=== PATIENT | female | born 1965 | race Caucasian/White ===

== ENCOUNTER 2016-09-11 11:34 | Day surgery (SDC) | payer BC ==
[~2016-09-11 11:34] MED LIST: SODIUM CHLORIDE 0.9% 250 ML in EMPTY BAG 1 BAG IV PRN; SODIUM CHLORIDE 0.9% 500 ML in EMPTY BAG 1 BAG IV PRN
[2016-09-11 11:50] VITALS: TEMP 98.4
[2016-09-11 11:52] VITALS: RESP 16
[2016-09-11] MEDS ORDERED: LACTATED RINGERS 1,000 ML IV NR (12:30)
--- NOTE | 2016-09-11 12:34 | P.PCN ---
Date of Procedure: 09/11/16 Preoperative Diagnosis: headaches Postoperative Diagnosis: same Procedure(s) Performed: Diagnostic lumbar puncture Anesthesia: local Surgeon: Twin Goff Pathology: none sent Condition: stable Disposition: same day Description of Procedure: The patient was seen and identified in the preoperative holding area. Risks, benefits, and alternatives to the procedure were explained to the patient, with risks including but not limited to bleeding, infection, nerve damage, weakness, headaches, allergic reactions to medications, and failure of the procedure itself, and an informed consent was signed after all questions were answered. A time-out was completed verifying correct patient, procedure, site, positioning , The patient was placed in the seated position in a semi- position with help from the nursing staff. The low back was cleansed and draped in the usual sterile fashion. 1% lidocaine was used anesthetize the surrounding skin area. A 22-gauge 3.5-inch spinal needle was placed in the L3-L4 interspace. A dural pop was felt and no paresthesias were noted. The stylet was removed and clear free- flowing cerebrospinal fluid was obtained. Four tubes were filled with 4 mL of CSF and these were sent for the usual tests as ordered by the patient's neurologist. DISPOSITION: The patient tolerated the procedure well and there were no complications. The patient was placed in a flat position. There was no evidence of upper extremity motor or sensory deficit after the procedure. Patient was discharged from the recovery room after meeting discharge criteria. Home discharge instructions were given to the patient by the staff, and the patient was instructed to go to the ER if she experienced severe headaches or any signs of symptoms of spinal infection or hematoma, regarding which she was educated. The patient verbalized understanding of these instructions.
[2016-09-11 12:48] LABS: ALT 26 U/L (9-52); AST 19 U/L (14-36)
[2016-09-11 12:50] LABS: Glucose,CSF 56 mg/dL (40-70)
[2016-09-11 12:52] LABS: Rheumatoid Factor, Qnt <9 IU/mL (<12)
[2016-09-11 12:57] VITALS: BP 140/99; PULSE 69
[2016-09-11 13:18] LABS: Appearance,CSF Clear
[2016-09-11 19:32] LABS: Treponemal Ab Non-Reactive (Non-Reactive)
[2016-09-11 21:31] LABS: ANA w/Reflex to Titer NEGATIVE (NEGATIVE)
[2016-09-12 05:32] LABS: Lyme Antibodies Total(IgG/IgM) 0.14 (<0.90)
[2016-09-14 20:16] LABS: Lyme Specimen Source CSF
== END 2016-09-11 14:57 | disposition home or self-care (01) ==
LOC: PROCWHC3 11:34
PROVIDERS: ATTEND Psychiatry & Neurology Neurology
DX: R51 Headache (principal); Z88.2 Allergy status to sulfonamides
CPT/HCPCS: 36415; 62270; 82040; 82042; 82164; 82784; 82945; 83873; 83916; 84157; 84439; 84443; 84450; 84460; 85613; 85730; 86038; 86225; 86235; 86431; 86592; 86618; 86780; 87476; 88108; 89050

== ENCOUNTER 2020-11-18 14:17 | Emergency (ER) | payer BC, OTHER ==
[2020-11-18 14:38] VITALS: RESP 18
[2020-11-18] MEDS ORDERED: SODIUM CHLORIDE 0.9% 1,000 ML IV ONE (16:40)
[2020-11-18] MEDS ORDERED: LIDOCAINE 1% INJ 10MG/ML (20 ML MDV) SQ ONE (16:41)
[2020-11-18] MEDS ORDERED: AMPICILLIN-SULBACTAM 3 GM in SODIUM CHLORIDE 0.9% 100 ML IVPB STA (16:41)
--- NOTE | 2020-11-18 17:04 | XR ---
RESULT: HISTORY: abscess, cellulitis TECHNIQUE: 2 views of the left tibia and fibula were obtained. COMPARISON: None. FINDINGS: There is no acute fracture or dislocation. The visualized joint spaces are preserved. No soft tissue gas or radiographic evidence for osteomyelitis. IMPRESSION: No acute osseous abnormality.
[2020-11-18 17:35] LABS: Basophils % (A) 1 %; Eosinophils % (A) 0 %; HCT 37.3 % (34.0-46.0); HGB 13.3 gm/dL (11.4-16.0); Lymphocytes # (A) 0.9 k/uL (1.0-4.8); Lymphocytes % (A) 17 %; MCH 33.7 pg (25.0-35.0); MCHC 35.6 g/dL (31.0-37.0); MCV 94.5 fL (80.0-100.0); Mean Platelet Volume 7.3; Monocytes # (A) 0.4 k/uL (0-1.0); Monocytes % (A) 8 %; Neutrophils # (A) 3.9 k/uL (1.3-7.7); Neutrophils % (A) 73 %; Platelet Count 163 k/uL (150-450); RBC 3.94 m/uL (3.80-5.40); RDW 12.1 % (11.5-15.5); WBC 5.4 k/uL (3.8-10.6)
[2020-11-18 17:37] LABS: ALT 8 U/L (4-34); AST 24 U/L (14-36); African American GFR (CKD) >90 (>60 ml/min/1.73 sqM); Albumin 3.2 g/dL (3.5-5.0); Alkaline Phosphatase 58 U/L (38-126); Anion Gap 3 mmol/L; Blood Urea Nitrogen 8 mg/dL (7-17); Calcium 8.3 mg/dL (8.4-10.2); Carbon Dioxide 32 mmol/L (22-30); Chloride 95 mmol/L (98-107); Glucose 95 mg/dL (74-99); Non-African American GFR(CKD) >90 (>60 ml/min/1.73 sqM); Potassium 3.9 mmol/L (3.5-5.1); Sodium 130 mmol/L (137-145); Total Bilirubin 0.6 mg/dL (0.2-1.3); Total Protein 6.2 g/dL (6.3-8.2)
[2020-11-18] MEDS ORDERED: ACETAMINOPHEN TAB 500 MG TAB PO STA (18:03)
--- NOTE | 2020-11-18 18:53 | ED ---
Skin/Abscess/FB HPI - General Chief complaint: Skin/Abscess/Foreign Body Stated complaint: SPIDER BITE ON LEFT LEG Source: patient Mode of arrival: ambulatory Limitations: no limitations - History of Present Illness Initial comments: 55 year old female with past medical history of CVA who presents emergency Department with reported left lower extremity wound. Patient states that she noted a small pimple to the left calf a few days ago which she thought was due to a bug bite. States it's enlarged in size and is now draining. She has associated surrounding redness to the area. Patient denies history of similar. No history of MRSA. Denies any fevers or chills. No difficulties with ambulation. Denies any knee or ankle pain. Patient has not taken any medications for pain control. No history of diabetes. Patient not on any blood thinners. No other alleviating, precipitating or modifying factors. - Related Data Previous Rx's Medication Instructions Recorded Cephalexin [Keflex] 500 mg PO Q6HR #40 cap 11/18/20 Sulfamethox-Tmp 800-160Mg [Bactrim 2 tab PO Q12HR #40 tab 11/18/20 DS 800-160 mg] Allergies Allergy/AdvReac Type Severity Reaction Status Date / Time povidone-iodine Allergy Rash/Hives Verified 11/18/20 14:38 [From Betadine] soap [From Betadine] Allergy Rash/Hives Verified 11/18/20 14:38 Review of Systems ROS Statement: Those systems with pertinent positive or pertinent negative responses have been documented in the HPI. ROS Other: All systems not noted in ROS Statement are negative. Past Medical History Past Medical History: CVA/TIA, Pneumonia Additional Past Medical History / Comment(s): headaches History of Any Multi-Drug Resistant Organisms: None Reported Past Surgical History: Tonsillectomy, Tubal Ligation Past Psychological History: Anxiety, Depression Smoking Status: Current every day smoker Past Alcohol Use History: None Reported Past Drug Use History: None Reported General Exam Limitations: no limitations General appearance: alert, in no apparent distress Head exam: Present: atraumatic, normocephalic, normal inspection Eye exam: Present: normal appearance, PERRL, EOMI. Absent: scleral icterus, conjunctival injection, periorbital swelling ENT exam: Present: normal exam, mucous membranes moist Neck exam: Present: normal inspection. Absent: tenderness, meningismus, lymphadenopathy Respiratory exam: Present: normal lung sounds bilaterally. Absent: respiratory distress, wheezes, rales, rhonchi, stridor Cardiovascular Exam: Present: regular rate, normal rhythm, normal heart sounds. Absent: systolic murmur, diastolic murmur, rubs, gallop, clicks GI/Abdominal exam: Present: soft, normal bowel sounds. Absent: distended, tenderness, guarding, rebound, rigid Extremities exam: Present: tenderness, normal capillary refill, other (abscess left leg - 5 x 4 cm with surrounding cellulitis. No active drainage. Central scabbing. 2+ DP and PT pulses. Swelling is located anterior azul. Not fully circumferential. No crepitance. No signs of compartment syndrome). Absent: pedal edema, joint swelling, calf tenderness Back exam: Present: normal inspection Neurological exam: Present: alert, oriented X3, CN II-XII intact Psychiatric exam: Present: normal affect, normal mood Skin exam: Present: warm, dry, intact, normal color. Absent: rash Course Vital Signs 11/18/20 11/18/20 14:31 19:00 Temperature 100.1 F H 99 F Pulse Rate 110 H 96 Respiratory 18 18 Rate Blood Pressure 135/79 132/86 O2 Sat by Pulse 97 98 Oximetry Procedures - Incision & Drainage Consent Obtained: verbal consent Indication: abscess Site: lower extremity Size (cm): 5 Anesthetic Used: lidocaine 1% Amount (mLs): 5 I&D Cleaning Method: Chloroprep Scalpel Used: #11 I&D Drainage Obtained: Pus Culture Obtained?: Yes Patient Tolerated Procedure: well, no complications Medical Decision Making - Medical Decision Making Upon arrival patient is placed into room 32. A thorough history and physical exam is performed. IV is established and labs were conducted. Patient was given a dose of Unasyn in the emergency department as well as a liter bolus of normal saline and a gram of Tylenol. The patient's wound is cultured after incision and drainage is performed. Patient will be discharged home on Keflex and Bactrim. Instructed to take the medications as directed. Return to the emergency department if her symptoms worsen. Patient agreed to this and was discharged home in stable condition - Lab Data Result diagrams: 11/18/20 17:15 11/18/20 17:18 Lab Results 03/28/21 03/28/21 03/28/21 Range/Units 17:15 17:18 17:18 WBC 5.4 (3.8-10.6) k/uL RBC 3.94 (3.80-5.40) m/uL Hgb 13.3 (11.4-16.0) gm/dL Hct 37.3 (34.0-46.0) % MCV 94.5 (80.0-100.0) fL MCH 33.7 (25.0-35.0) pg MCHC 35.6 (31.0-37.0) g/dL RDW 12.1 (11.5-15.5) % Plt Count 163 (150-450) k/uL MPV 7.3 Neutrophils % 73 % Lymphocytes % 17 % Monocytes % 8 % Eosinophils % 0 % Basophils % 1 % Neutrophils # 3.9 (1.3-7.7) k/uL Lymphocytes # 0.9 L (1.0-4.8) k/uL Monocytes # 0.4 (0-1.0) k/uL Eosinophils # 0.0 (0-0.7) k/uL Basophils # 0.0 (0-0.2) k/uL Sodium 130 L (137-145) mmol/L Potassium 3.9 (3.5-5.1) mmol/L Chloride 95 L (98-107) mmol/L Carbon Dioxide 32 H (22-30) mmol/L Anion Gap 3 mmol/L BUN 8 (7-17) mg/dL Creatinine 0.64 (0.52-1.04) mg/dL Est GFR (CKD-EPI)AfAm >90 (>60 ml/min/1.73 sqM) Est GFR (CKD-EPI)NonAf >90 (>60 ml/min/1.73 sqM) Glucose 95 (74-99) mg/dL Plasma Lactic Acid Angel 0.8 (0.7-2.0) mmol/L Calcium 8.3 L (8.4-10.2) mg/dL Total Bilirubin 0.6 (0.2-1.3) mg/dL AST 24 (14-36) U/L ALT 8 (4-34) U/L Alkaline Phosphatase 58 (38-126) U/L Total Protein 6.2 L (6.3-8.2) g/dL Albumin 3.2 L (3.5-5.0) g/dL Disposition Clinical Impression: Cellulitis, Abscess Disposition: HOME SELF-CARE Condition: Stable Instructions (If sedation given, give patient instructions): Abscess (ED), Abscess Incision and Drainage (DC) Additional Instructions: Please take the antibiotics as directed. Take Motrin/Tylenol for pain, Return to the emergency room for any new or worsening symptoms. Prescriptions: Sulfamethox-Tmp 800-160Mg [Bactrim DS 800-160 mg] 2 tab PO Q12HR #40 tab Cephalexin [Keflex] 500 mg PO Q6HR #40 cap Is patient prescribed a controlled substance at d/c from ED?: No Referrals: None,Stated [Primary Care Provider] - 1-2 days Time of Disposition: 18:53
[2020-11-18 19:01] VITALS: BP 132/86; PULSE 96; TEMP 99
== END 2020-11-18 19:02 | disposition home or self-care (01) ==
LOC: EC 14:17
DX: L03.116 Cellulitis of left lower limb (principal); L02.416 Cutaneous abscess of left lower limb; F41.9 Anxiety disorder, unspecified; F32.9 Major depressive disorder, single episode, unspecified; Z86.73 Personal history of transient ischemic attack (TIA), and cerebral infarction without residual deficits; F17.200 Nicotine dependence, unspecified, uncomplicated
CPT/HCPCS: 36415; 80053; 83605; 85025; 87070; 87205; 73590; 99283; 96365; J2001; J0295

== ENCOUNTER 2021-02-17 18:01 | Emergency (ER) | payer OTHER ==
[2021-02-17 18:05] VITALS: BP 144/92; PULSE 129; RESP 20; TEMP 98
[2021-02-17 18:49] LABS: Basophils # (A) 0.1 k/uL (0-0.2); Basophils % (A) 1 %; Eosinophils # (A) 0.3 k/uL (0-0.7); Eosinophils % (A) 3 %; HGB 14.5 gm/dL (11.4-16.0); Lymphocytes # (A) 1.5 k/uL (1.0-4.8); Lymphocytes % (A) 17 %; MCH 32.8 pg (25.0-35.0); MCHC 34.6 g/dL (31.0-37.0); Mean Platelet Volume 6.8; Monocytes # (A) 0.5 k/uL (0-1.0); Monocytes % (A) 5 %; Neutrophils # (A) 6.5 k/uL (1.3-7.7); Neutrophils % (A) 72 %; Platelet Count 290 k/uL (150-450); RBC 4.42 m/uL (3.80-5.40); RDW 12.5 % (11.5-15.5)
[2021-02-17 18:57] LABS: Albumin 4.2 g/dL (3.5-5.0); Appearance,Urine Clear (Clear); Bacteria,Urine Rare /hpf; Bilirubin,Urine Negative (Negative); Blood,Urine Negative (Negative); Calcium 10.2 mg/dL (8.4-10.2); Color,Urine Yellow; Glucose,Urine (UA) Negative (Negative); Hyaline Casts,Urine 1 /lpf (0-2); Ketones,Urine Negative (Negative); Leukocyte Esterase,Urine Large (Negative); Mucus,Urine Occasional /hpf; Nitrite,Urine Negative (Negative); PH, Urine 6.5 (5.0-8.0); Potassium 4.3 mmol/L (3.5-5.1); Protein,Urine Negative (Negative); RBC,Urine 3 /hpf (0-5); Specific Gravity,Urine 1.017 (1.001-1.035); Squamous Epithelial Cell,Urine 3 /hpf (0-4); Total Bilirubin 0.8 mg/dL (0.2-1.3); Total Protein 7.3 g/dL (6.3-8.2); WBC,Urine 3 /hpf (0-5)
[2021-02-17 19:12] LABS: Amphetamine Screen,Urine Detected (NotDetected); Barbiturate Screen,Urine Not Detected (NotDetected); Benzodiazepines Screen,Urine Not Detected (NotDetected); Cocaine Screen,Urine Not Detected (NotDetected); Methadone Screen, Urine Not Detected (NotDetected); Opiate Screen,Urine Not Detected (NotDetected); Oxycodone Screen, Urine Not Detected (NotDetected); Phencyclidine Screen,Urine Not Detected (NotDetected); Tricyclic Antidepressant,Urine Not Detected (NotDetected); Urn Cannabinoid Scrn Detected (NotDetected)
--- NOTE | 2021-02-17 19:34 | ED ---
General Adult HPI - General Chief complaint: Skin/Abscess/Foreign Body Stated complaint: skin issues Time Seen by Provider: 02/17/21 18:16 Source: patient, RN notes reviewed Mode of arrival: ambulatory Limitations: no limitations - History of Present Illness Initial comments: Patient is a 56-year-old female that presents to the emergency department comp laining of bugs crawling out of her skin. She notes that she woke up with her eye swollen shut picked at her eyes in bugs were crawling out. She notes turned her hair. Patient didn't appear to be on some type of foreign substance during the exam interview. She did report she did use marijuana earlier today. She denied any other substance use in the recent past. She was in no apparent distress or pain while sitting up. She denied any chest pain shortness breath headache nausea vomiting diarrhea constipation fever fatigue chills. - Related Data Previous Rx's Medication Instructions Recorded Cephalexin [Keflex] 500 mg PO Q6HR #40 cap 11/18/20 Sulfamethox-Tmp 800-160Mg [Bactrim 2 tab PO Q12HR #40 tab 11/18/20 DS 800-160 mg] Bacitracin Zinc/Polymyxin B 1 applic TOPICAL BID #15 gm 02/17/21 [Bacitracin-Polymyxin Ointment] Allergies Allergy/AdvReac Type Severity Reaction Status Date / Time povidone-iodine Allergy Rash/Hives Verified 11/18/20 14:38 [From Betadine] soap [From Betadine] Allergy Rash/Hives Verified 11/18/20 14:38 Review of Systems ROS Statement: Those systems with pertinent positive or pertinent negative responses have been documented in the HPI. ROS Other: All systems not noted in ROS Statement are negative. Past Medical History Past Medical History: CVA/TIA, Pneumonia Additional Past Medical History / Comment(s): headaches History of Any Multi-Drug Resistant Organisms: MRSA Date of last positivie culture/infection: 11/18/20 MDRO Source:: Left Leg Past Surgical History: Tonsillectomy, Tubal Ligation Past Psychological History: Anxiety, Depression Smoking Status: Current every day smoker Past Alcohol Use History: Occasional Past Drug Use History: None Reported General Exam Limitations: no limitations, altered mental status (Due to illegal drug.) General appearance: alert, in no apparent distress Head exam: Present: normocephalic, normal inspection Eye exam: Present: normal appearance, PERRL, EOMI. Absent: scleral icterus, conjunctival injection, periorbital swelling Neck exam: Present: normal inspection Respiratory exam: Present: normal lung sounds bilaterally. Absent: respiratory distress, wheezes, rales, rhonchi, stridor Cardiovascular Exam: Present: regular rate, normal rhythm, normal heart sounds. Absent: systolic murmur, diastolic murmur, rubs, gallop, clicks Extremities exam: Present: normal inspection, full ROM, normal capillary refill. Absent: tenderness, pedal edema, joint swelling, calf tenderness Neurological exam: Present: alert, oriented X3 Psychiatric exam: Present: normal affect, normal mood Skin exam: Present: warm, dry, intact, normal color, abrasion (Multiple the left side of the face, patient stated she scratched her face due to bolus and then.). Absent: rash Course Vital Signs 02/17/21 18:03 Temperature 98.0 F Pulse Rate 129 H Respiratory 20 Rate Blood Pressure 144/92 O2 Sat by Pulse 98 Oximetry Medical Decision Making - Medical Decision Making 56-year-old female complaining of bugs crawling out of her face and head. Patient declined any drug abuse or use except for marijuana. Labs, urinalysis, drug screen ordered. Labs unremarkable. Drug screen showed positive results for meth amphetamines and marijuana. Case discussed with Dr. Williamson, patient can discharge home to family. - Lab Data Result diagrams: 02/17/21 18:35 02/17/21 18:35 Lab Results 02/17/21 02/17/21 02/17/21 Range/Units 18:35 18:35 18:35 WBC 9.0 (3.8-10.6) k/uL RBC 4.42 (3.80-5.40) m/uL Hgb 14.5 (11.4-16.0) gm/dL Hct 42.0 (34.0-46.0) % MCV 95.0 (80.0-100.0) fL MCH 32.8 (25.0-35.0) pg MCHC 34.6 (31.0-37.0) g/dL RDW 12.5 (11.5-15.5) % Plt Count 290 (150-450) k/uL MPV 6.8 Neutrophils % 72 % Lymphocytes % 17 % Monocytes % 5 % Eosinophils % 3 % Basophils % 1 % Neutrophils # 6.5 (1.3-7.7) k/uL Lymphocytes # 1.5 (1.0-4.8) k/uL Monocytes # 0.5 (0-1.0) k/uL Eosinophils # 0.3 (0-0.7) k/uL Basophils # 0.1 (0-0.2) k/uL Sodium 138 (137-145) mmol/L Potassium 4.3 (3.5-5.1) mmol/L Chloride 101 (98-107) mmol/L Carbon Dioxide 28 (22-30) mmol/L Anion Gap 9 mmol/L BUN 9 (7-17) mg/dL Creatinine 0.96 (0.52-1.04) mg/dL Est GFR (CKD-EPI)AfAm 76 (>60 ml/min/1.73 sqM) Est GFR (CKD-EPI)NonAf 66 (>60 ml/min/1.73 sqM) Glucose 152 H (74-99) mg/dL Calcium 10.2 (8.4-10.2) mg/dL Total Bilirubin 0.8 (0.2-1.3) mg/dL AST 19 (14-36) U/L ALT 8 (4-34) U/L Alkaline Phosphatase 90 (38-126) U/L Total Protein 7.3 (6.3-8.2) g/dL Albumin 4.2 (3.5-5.0) g/dL Urine Color Yellow Urine Appearance Clear (Clear) Urine pH 6.5 (5.0-8.0) Ur Specific [place] 1.017 (1.001-1.035) Urine Protein Negative (Negative) Urine Glucose (UA) Negative (Negative) Urine Ketones Negative (Negative) Urine Blood Negative (Negative) Urine Nitrite Negative (Negative) Urine Bilirubin Negative (Negative) Urine Urobilinogen 2.0 (<2.0) mg/dL Ur Leukocyte Esterase Large H (Negative) Urine RBC 3 (0-5) /hpf Urine WBC 3 (0-5) /hpf Ur Squamous Epith Cells 3 (0-4) /hpf Urine Bacteria Rare H (None) /hpf Hyaline Casts 1 (0-2) /lpf Urine Mucus Occasional H (None) /hpf Urine Opiates Screen Not Detected (NotDetected) Ur Oxycodone Screen Not Detected (NotDetected) Urine Methadone Screen Not Detected (NotDetected) Ur Propoxyphene Screen Not Detected (NotDetected) Ur Barbiturates Screen Not Detected (NotDetected) U Tricyclic Antidepress Not Detected (NotDetected) Ur Phencyclidine Scrn Not Detected (NotDetected) Ur Amphetamines Screen Detected H (NotDetected) U Methamphetamines Scrn Detected H (NotDetected) U Benzodiazepines Scrn Not Detected (NotDetected) Urine Cocaine Screen Not Detected (NotDetected) U Marijuana (THC) Screen Detected H (NotDetected) Disposition Clinical Impression: Facial abrasion, Polysubstance abuse Disposition: HOME SELF-CARE Condition: Stable Instructions (If sedation given, give patient instructions): Polysubstance Abuse (ED) Additional Instructions: Please return to the Emergency Department if symptoms worsen or any other concerns. Use bacitracin ointment twice a day for facial abrasions. Follow-up primary can extremities. Avoid drug use. Is patient prescribed a controlled substance at d/c from ED?: No Referrals: None,Stated [Primary Care Provider] - 1-2 days Time of Disposition: 19:34
== END 2021-02-17 19:31 | disposition home or self-care (01) ==
LOC: EC 18:01
DX: S00.81XA Abrasion of other part of head, initial encounter (principal); F19.10 Other psychoactive substance abuse, uncomplicated; F31.9 Bipolar disorder, unspecified; F41.9 Anxiety disorder, unspecified; F17.200 Nicotine dependence, unspecified, uncomplicated; F12.90 Cannabis use, unspecified, uncomplicated; Z86.73 Personal history of transient ischemic attack (TIA), and cerebral infarction without residual deficits; X58.XXXA Exposure to other specified factors, initial encounter
CPT/HCPCS: 36415; 80053; 80306; 81001; 85025; 99283

== ENCOUNTER 2021-04-11 15:51 | Emergency (ER) | payer OTHER ==
[2021-04-11 16:06] VITALS: RESP 18; TEMP 97.8
--- NOTE | 2021-04-11 16:14 | ED ---
General Adult HPI - General Chief complaint: Overdose Stated complaint: Overdose Time Seen by Provider: 04/11/21 16:00 Source: patient, EMS, RN notes reviewed, old records reviewed Mode of arrival: EMS Limitations: no limitations - History of Present Illness Initial comments: This is a 56-year-old female who presents to the emergency department because she was found unresponsive. EMS stated when he initially arrived she had a pulse but was apneic they gave her 1 mg of Narcan she became alert and oriented 4. Patient states she was short hair one which she hasn't done in a long time and that last she remembers. Patient denies any drug use patient denies any alcohol use. Patient denies any other problems per patient states she has no medical problem. Patient denies any recent fever chills or cough per patient denies any chest pain difficult breathing shortest breath per patient denies any headache patient denies numbness weakness. Patient denies any abdominal pain. Patient denies any recent injury or trauma. Patient states she wants no workup and does not want to stay at all and is willing to sign an AMA I did convince her however to do a drug screen to make sure there was noted no methadone on board. - Related Data Previous Rx's Medication Instructions Recorded Cephalexin [Keflex] 500 mg PO Q6HR #40 cap 11/18/20 Sulfamethox-Tmp 800-160Mg [Bactrim 2 tab PO Q12HR #40 tab 11/18/20 DS 800-160 mg] Bacitracin Zinc/Polymyxin B 1 applic TOPICAL BID #15 gm 02/17/21 [Bacitracin-Polymyxin Ointment] Allergies Allergy/AdvReac Type Severity Reaction Status Date / Time povidone-iodine Allergy Rash/Hives Verified 04/11/21 16:06 [From Betadine] soap [From Betadine] Allergy Rash/Hives Verified 04/11/21 16:06 Review of Systems ROS Statement: Those systems with pertinent positive or pertinent negative responses have been documented in the HPI. ROS Other: All systems not noted in ROS Statement are negative. Past Medical History Past Medical History: CVA/TIA, Pneumonia Additional Past Medical History / Comment(s): headaches History of Any Multi-Drug Resistant Organisms: MRSA Date of last positivie culture/infection: 11/18/20 MDRO Source:: Left Leg Past Surgical History: Tonsillectomy, Tubal Ligation Past Psychological History: Anxiety, Depression Smoking Status: Current every day smoker Past Alcohol Use History: Occasional Past Drug Use History: Heroin, Marijuana General Exam - General Exam Comments Initial Comments: GENERAL: Patient is well-developed and well-nourished. Patient is nontoxic and well- hydrated and is in no acute distress. ENT: Neck is soft and supple. No significant lymphadenopathy is noted. Oropharynx is clear. Moist mucous membranes. Neck has full range of motion without eliciting any pain. EYES: The sclera were anicteric and conjunctiva were pink and moist. Extraocular movements were intact and pupils were equal round and reactive to light. Eyelids were unremarkable. PULMONARY: Unlabored respirations. Good breath sounds bilaterally. No audible rales rhonchi or wheezing was noted. CARDIOVASCULAR: There is a regular rate and rhythm without any murmurs gallops or rubs. ABDOMEN: Soft and nontender with normal bowel sounds. SKIN: Skin is clear with no lesions or rashes and otherwise unremarkable. NEUROLOGIC: Patient is alert and oriented x3. Cranial nerves II through XII are grossly intact. Motor and sensory are also intact. Normal speech, volume and content. Symmetrical smile. MUSCULOSKELETAL: Normal extremities with adequate strength and full range of motion. LYMPHATICS: No significant lymphadenopathy is noted PSYCHIATRIC: Normal psychiatric evaluation. Limitations: no limitations Course Vital Signs 04/11/21 16:03 Temperature 97.8 F Pulse Rate 101 H Respiratory 18 Rate Blood Pressure 161/90 O2 Sat by Pulse 99 Oximetry Medical Decision Making - Medical Decision Making Patient wants no workup whatsoever and she wants to leave at this time. Patient agrees to sign out AMA understanding that it might be detrimental to her health. Disposition Clinical Impression: Heroin overdose Disposition: Left Against Medical Advice Instructions (If sedation given, give patient instructions): Adult Overdose (ED) Additional Instructions: Stop doing heroin Is patient prescribed a controlled substance at d/c from ED?: No Referrals: None,Stated [Primary Care Provider] - 1-2 days Time of Disposition: 16:14
[2021-04-11 16:33] VITALS: BP 144/95; PULSE 84
[2021-04-11 16:43] LABS: Urn Cannabinoid Scrn Detected (NotDetected)
[2021-04-11 16:44] LABS: Amphetamine Screen,Urine Not Detected (NotDetected); Barbiturate Screen,Urine Not Detected (NotDetected); Benzodiazepines Screen,Urine Not Detected (NotDetected); Cocaine Screen,Urine Not Detected (NotDetected); Methadone Screen, Urine Not Detected (NotDetected); Opiate Screen,Urine Detected (NotDetected); Oxycodone Screen, Urine Not Detected (NotDetected); Phencyclidine Screen,Urine Not Detected (NotDetected); Tricyclic Antidepressant,Urine Not Detected (NotDetected)
== END 2021-04-11 17:11 | disposition left against medical advice (07) ==
LOC: EC 15:51
DX: T40.1X1A Poisoning by heroin, accidental (unintentional), initial encounter (principal); F17.200 Nicotine dependence, unspecified, uncomplicated; F12.90 Cannabis use, unspecified, uncomplicated; Z86.73 Personal history of transient ischemic attack (TIA), and cerebral infarction without residual deficits
CPT/HCPCS: 80306; 99284

== ENCOUNTER 2025-02-04 21:03 | Emergency (ER) | payer OTHER ==
[2025-02-04 21:08] VITALS: TEMP 97.9
[2025-02-04] MEDS: CEPHALEXIN 500 MG CAP PO STA (21:36)
[2025-02-04] MEDS: DIPH,PERTUS(ACELL)TETVAC-LF 0.5 ML VIAL IM ONE (21:37)
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
[2025-02-04 22:47] VITALS: BP 143/97; PULSE 81; RESP 17
[2025-02-04] MEDS: BACITRACIN ZINC 500 UNIT/GM OINT 28.4 GM TUBE TOPICAL ONE (22:48)
== END 2025-02-04 22:47 | disposition home or self-care (01) ==
LOC: EC 21:03
DX: T23.202A Burn of second degree of left hand, unspecified site, initial encounter (principal); T20.10XA Burn of first degree of head, face, and neck, unspecified site, initial encounter; F17.200 Nicotine dependence, unspecified, uncomplicated; Z23 Encounter for immunization; Z86.73 Personal history of transient ischemic attack (TIA), and cerebral infarction without residual deficits; Z88.8 Allergy status to other drugs, medicaments and biological substances; Z91.048 Other nonmedicinal substance allergy status; X00.0XXA Exposure to flames in uncontrolled fire in building or structure, initial encounter; Y92.009 Unspecified place in unspecified non-institutional (private) residence as the place of occurrence of the external cause
CPT/HCPCS: 16020; 90471; 90715; 99283